=== PATIENT | female | born 1980 | race Caucasian/White ===

== ENCOUNTER 2017-08-13 12:19 | Emergency (ER) | payer BC ==
[~2017-08-13 12:19] MED LIST: ALBU8.5H6 IH; AZIT500T PO
[2017-08-13 12:27] VITALS: BP 114/65
[2017-08-13] MEDS ORDERED: PRED20TA PO (12:39)
[2017-08-13] MEDS ORDERED: AMOX1TAB61 PO (12:39)
--- NOTE | 2017-08-13 12:39 | PHYS DOC ---
Past Medical History Past Medical History: Other Additional Past Medical Histor: Morbid obesity Past Surgical History: Other Additional Past Surgical Histo: Gastric sleeve Alcohol Use: None Drug Use: None Adult General Chief Complaint Chief Complaint: SORE THROAT HPI HPI Patient is a 36 year old female presents the ED complaining of sore throat 3 days. Patient states month ago she was diagnosed with bronchitis. Associated symptoms include ear pain and subjective fever. Describes the pain as sharp. Rates the pain as 7 out of 10. Denies cough, nausea/vomiting, dizziness, weakness, headache, vision changes, chest pain or shortness of breath. Review of Systems Review of Systems Constitutional: Denies fever or chills [] Eyes: Denies change in visual acuity, redness, or eye pain [] HENT: Denies nasal congestion. Complains of sore throat and ear pain.[] Respiratory: Denies cough or shortness of breath [] Cardiovascular: No additional information not addressed in HPI [] GI: Denies abdominal pain, nausea, vomiting, bloody stools or diarrhea [] : Denies dysuria or hematuria [] Musculoskeletal: Denies back pain or joint pain [] Integument: Denies rash or skin lesions [] Neurologic: Denies headache, focal weakness or sensory changes [] Endocrine: Denies polyuria or polydipsia [] Allergies Allergies Allergies Coded Allergies Type Severity Reaction Last Updated Verified ciprofloxacin Allergy Severe Anaphylaxis 01/03/14 Yes adhesive Allergy Mild Rash 01/03/14 Yes doxycycline Allergy Anaphylaxis 01/03/14 Yes Physical Exam Physical Exam Constitutional: Well developed, well nourished, no acute distress, non-toxic appearance. [] HENT: Normocephalic, atraumatic, bilateral external ears normal, oropharynx moist, MILD PHARYNGEAL ERYTHEMA WITH EXUDATE, nose normal. [] Eyes: PERRLA, EOMI, conjunctiva normal, no discharge. [] Neck: Normal range of motion, no tenderness, supple, no stridor. [] Cardiovascular:Heart rate regular rhythm, no murmur [] Lungs & Thorax: Bilateral breath sounds clear to auscultation [] Abdomen: Bowel sounds normal, soft, no tenderness, no masses, no pulsatile masses. [] Skin: Warm, dry, no erythema, no rash. [] Back: No tenderness, no CVA tenderness. [] Extremities: No tenderness, no cyanosis, no clubbing, ROM intact, no edema. [] Neurologic: Alert and oriented X 3, normal motor function, normal sensory function, no focal deficits noted. [] Psychologic: Affect normal, judgement normal, mood normal. [] Current Patient Data Vital Signs Vital Signs Date Time Temp Pulse Resp B/P (MAP) Pulse Ox O2 Delivery O2 Flow Rate FiO2 08/13/17 12:27 98.3 86 18 98 Room Air 98.3 EKG EKG [] Radiology/Procedures Radiology/Procedures [] Course & Med Decision Making Course & Med Decision Making Pertinent Labs and Imaging studies reviewed. (See chart for details) [] Dragon Disclaimer Dragon Disclaimer This electronic medical record was generated, in whole or in part, using a voice recognition dictation system. Departure Departure Impression: Primary Impression: Pharyngitis Disposition: 01 HOME, SELF-CARE Condition: STABLE Referrals: KALEY LE MD (PCP) Patient Instructions: Viral and Bacterial Pharyngitis Scripts Prednisone (PREDNISONE) 20 Mg Tablet 2 TAB PO DAILY, #10 TAB Prov: CHRIS TILLEY 08/13/17 Amoxicillin/Potassium Clav (AUGMENTIN 875-125 TABLET) 1 Each Tablet 1 TAB PO BID, #20 TAB Prov: CHRIS TILLEY 08/13/17 CHRIS TILLEY Aug 13, 2017 12:39
[2017-08-14 07:43] LABS: NEGATIVE OBC STREP NEG; POSITIVE OBC STREP POS
== END 2017-08-13 12:51 | disposition home or self-care (01) ==
LOC: ER 12:19
DX: J02.9 Acute pharyngitis, unspecified (principal); H92.09 Otalgia, unspecified ear; R50.9 Fever, unspecified; Z88.1 Allergy status to other antibiotic agents; Z88.8 Allergy status to other drugs, medicaments and biological substances
CPT/HCPCS: 87070; 87880; 99283

== ENCOUNTER 2021-09-03 08:50 | Emergency (ER) | payer SELFPAY ==
[~2021-09-03] VITALS: Ht 157.5 cm; Wt 84.1 kg
[~2021-09-03 08:50] MED LIST changes: +AMOX1TAB61 PO; +PRED20TA PO
--- NOTE | 2021-09-03 10:32 | PHYS DOC ---
Past Medical History Past Medical History: Other Additional Past Medical Histor: Morbid obesity Past Surgical History: Other Additional Past Surgical Histo: Gastric sleeve Smoking Status: Current Every Day Smoker Alcohol Use: None Drug Use: None General Adult EDM: Chief Complaint: PELVIC PAIN HPI: HPI: Patient is a 40 year old who is here with pelvic pain, mostly right-sided. She has been experiencing the symptoms for several days. Over the weekend, she was seen at [facility], and at that time she had laboratory exams, urinalysis, CT abdomen pelvis and pelvic ultrasound. She told she was diagnosed with a right-sided ovarian cyst. She was prescribed a Medrol Dosepak and tramadol. She is unsure why she was prescribed the Medrol Dosepak. She rep orts that the tramadol is not helping her pain. She reports nausea without vomiting. She denies fevers or chills. She denies urinary symptoms. She does report some scant white vaginal discharge, which does not seem different from her physiologic discharge. LMP within the last month. She denies any history of STI, PID. She has not yet been able to follow-up with a applications support lead. She denies anorexia. She denies bowel habit changes. Review of Systems: Review of Systems: Constitutional: Denies fever or chills. HENT: Denies nasal congestion or sore throat. [] Respiratory: Denies cough or shortness of breath. [] Cardiovascular: Denies chest pain or edema. [] GI: Reports abdominal and pelvic pain. Denies vomiting, but does report nausea. Denies bowel habit changes. : Reports pelvic pain. Denies urinary symptoms. Reports scant white, physiologic discharge. Musculoskeletal: Denies back pain or joint pain. [] Integument: Denies rash. [] Neurologic: Denies headache, focal weakness or sensory changes. [] Endocrine: Denies polyuria or polydipsia. [] Lymphatic: Denies swollen glands. [] Psychiatric: Denies depression or anxiety. [] Heart Score: C/O Chest Pain: No Risk Factors: Risk Factors: DM, Current or recent (<one month) smoker, HTN, HLP, family history of CAD, obesity. Risk Scores: Score 0 - 3: 2.5% MACE over next 6 weeks - Discharge Home Score 4 - 6: 20.3% MACE over next 6 weeks - Admit for Clinical Observation Score 7 - 10: 72.7% MACE over next 6 weeks - Early Invasive Strategies Allergies: Allergies: Allergies Coded Allergies Type Severity Reaction Last Updated Verified ciprofloxacin Allergy Severe Anaphylaxis 01/03/14 Yes adhesive Allergy Mild Rash 01/03/14 Yes doxycycline Allergy Anaphylaxis 01/03/14 Yes Physical Exam: PE: Constitutional: Well developed, well nourished, no acute distress, non-toxic appearance. [] HENT: Normocephalic, atraumatic Eyes: Clear, anicteric. Neck: Normal range of motion, no tenderness, supple, no stridor. [] Cardiovascular:Heart rate regular rhythm, +2 radial and dorsalis pedis pulses bilaterally. Lungs & Thorax: Bilateral breath sounds clear to auscultation [] Abdomen: Abdomen is soft, nondistended, minimal tenderness to palpation in the suprapubic and right lower pelvic area. No guarding. No rebound. No CVA tenderness. No palpable masses organomegaly. No flank or abdominal ecchymoses. Normal bowel sounds are noted. Pelvic: No external vulvar lesions. There is very scant white discharge. The cervix is nonerythematous. No purulent discharge. No erythema. No CMT. Minimal right adnexal tenderness on bimanual exam. No adnexal fullness. Skin: Warm, dry, no erythema, no rash. [] Back: No tenderness, no CVA tenderness. [] Extremities: No tenderness, no cyanosis, no clubbing, ROM intact, no edema. [] Neurologic: Alert and oriented X 3, normal motor function, normal sensory function, no focal deficits noted. [] Psychologic: Affect normal, judgement normal, mood normal. [] EKG: EKG: [] Radiology/Procedures: Radiology/Procedures: IMAGING REPORT Signed PATIENT: KENDALL BENOITOUNT: [id number] : 1980 LOCATION: ER AGE: 40 SEX: F EXAM STATUS: REG ER ORD. PHYSICIAN: ROXI VERDUGO DO REASON: pelvic pain-RIGHT PROCEDURE: PELVIS W/TV EXAM: Pelvic sonogram. HISTORY: Pain. TECHNIQUE: Transabdominal and transvaginal sonographic imaging of the pelvis was performed. COMPARISON: None. FINDINGS: The uterus measures 9.0 x 6.5 x 4.2 cm. The endometrial stripe measures 10 mm in thickness. The left ovary is obscured due to bowel gas. No left adnexal mass or cyst is seen. The right ovary is normal in size. There is a 2.4 cm complicated right ovarian cyst, likely hemorrhagic in etiology. There is also a 1.4 cm right ovarian cyst containing a thin internal septation. There is no pelvic free fluid. IMPRESSION: 1. 2.4 cm suspected hemorrhagic right ovarian cyst and 1.4 cm right ovarian cyst with thin internal septation. Follow-up can be performed in 2-3 months to confirm resolution. 2. Obscured left ovary. Electronically signed by: Mariam Szymanski MD (09/03/2021 11:27 AM) [id number] DICTATED and SIGNED BY: MARIAM SZYMANSKI MD DATE: 09/03/21 [id number] 0 Course & Med Decision Making: Course & Med Decision Making Pertinent Labs and Imaging studies reviewed. (See chart for details) IV fluids, IV Zofran, IV morphine given. She is resting comfortably. She has a nonsurgical, benign abdominal exam. Ultrasound does show what is likely a hemorrhagic, septated cyst of her right ovary. No evidence of torsion. She is clinically well-appearing. No indication for further invasive exams, imaging or admission at this time. She does understand that vaginal swabs are pending. Her overall pelvic exam is benign. I did recommend that she follow-up with a applications support lead and primary care physician for further evaluation and treatment. I see no clinical reason for her to be on any oral steroid treatment, so I have informed her she should stop taking this. Strict return precautions are given. She is comfortable with the plan of care. Dragon Disclaimer: Dragmatheus Disclaimer: This electronic medical record was generated, in whole or in part, using a voice recognition dictation system. Departure Departure Impression: Primary Impression: Hemorrhagic cyst of right ovary Additional Impression: Pelvic pain Disposition: 01 HOME / SELF CARE / HOMELESS Condition: GOOD Referrals: KALEY LE MD (PCP) Patient Instructions: Ovarian Cyst Additional Instructions: Use the medication as directed/as needed. Stop taking the steroids, as these will only continue to cause increase stomach upset and nausea, and do not appear to provide any therapeutic treatment for your current condition.. Return for more severe pain, fever 100.4 or higher, uncontrolled vomiting with dehydration, or other concerns. Please follow-up with a applications support lead for further evaluation and treatment. Scripts Ondansetron Hcl (ZOFRAN) 4 Mg Tablet 4 MG PO PRN TID PRN for VOMITING, #15 EA nausea/vomiting Prov: ROXI VERDUGO DO 09/03/21 Hydrocodone Bit/Acetaminophen (HYDROCODONE-APAP 5-325 ) 1 Tab Tablet 1 TAB PO PRN Q6HRS PRN for PAIN, #15 TAB 0 Refills Prov: ROXI VERDUGO DO 09/03/21 ROXI VERDUGO DO Sep 03, 2021 10:32
[2021-09-03] MEDS ORDERED: MORPHINE SULFATE 4 MG/ML INJ. IVP ONE (11:00)
[2021-09-03] MEDS ORDERED: ONDANSETRON PF 4 MG/2 ML VIAL. IVP ONE (11:00)
[2021-09-03] MEDS ORDERED: IV NORMAL SALINE 1000ML BAG 1,000 ML IV ONE (11:00)
[2021-09-03 11:05] LABS: BILIRUBIN,URINE SMALL (NEG); CLARITY,URINE CLEAR; COLOR,URINE YELLOW; NITRITE,URINE NEGATIVE (NEG); PH,URINE 5.5 (<5.0-8.0); PROTEIN,URINE NEGATIVE (NEG-TRACE); UROBILINOGEN,URINE 0.2 mg/dL (0.2 mg/dL)
[2021-09-03 11:15] LABS: BASO # 0.1 x10^3/uL (0.0-0.2); BASO % 1 % (0-3); EOS # 0.2 x10^3/uL (0.0-0.7); EOS % 2 % (0-3); HEMOGLOBIN 11.7 g/dL (12.0-15.5); LYMPH # 3.6 x10^3/uL (1.0-4.8); LYMPH % 34 % (24-48); MEAN CORPUSCULAR HEMOGLOBIN 29 pg (25-35); MEAN CORPUSCULAR HGB CONC 33 g/dL (31-37); MEAN CORPUSCULAR VOLUME 89 fL (79-100); MONO # 1.1 x10^3/uL (0.0-1.1); MONO % 10 % (0-9); NEUT # 5.6 x10^3/uL (1.8-7.7); NEUT % 53 % (31-73); PLATELET COUNT 489 x10^3/uL (140-400); RED BLOOD COUNT 4.04 x10^6/uL (3.50-5.40); RED CELL DISTRIBUTION WIDTH 14.2 % (11.5-14.5); WHITE BLOOD COUNT 10.7 x10^3/uL (4.0-11.0)
[2021-09-03 11:24] LABS: CALCIUM 8.5 mg/dL (8.5-10.1); CREATININE 0.7 mg/dL (0.6-1.0); GFR 93.2
[2021-09-03 11:27] LABS: PREG TEST PT QUAL NEGATIVE (NEG)
[2021-09-03 11:29] LABS: ALBUMIN 3.4 g/dL (3.4-5.0); TOTAL BILIRUBIN 0.1 mg/dL (0.2-1.0); TOTAL PROTEIN 6.8 g/dL (6.4-8.2)
--- NOTE | 2021-09-03 11:29 | RAD ---
EXAM: Pelvic sonogram. HISTORY: Pain. TECHNIQUE: Transabdominal and transvaginal sonographic imaging of the pelvis was performed. COMPARISON: None. FINDINGS: The uterus measures 9.0 x 6.5 x 4.2 cm. The endometrial stripe measures 10 mm in thickness. The left ovary is obscured due to bowel gas. No left adnexal mass or cyst is seen. The right ovary i s normal in size. There is a 2.4 cm complicated right ovarian cyst, likely hemorrhagic in etiology. T here is also a 1.4 cm right ovarian cyst containing a thin internal septation. There is no pelvic charley e fluid. IMPRESSION: 1. 2.4 cm suspected hemorrhagic right ovarian cyst and 1.4 cm right ovarian cyst with thin internal s eptation. Follow-up can be performed in 2-3 months to confirm resolution. 2. Obscured left ovary. Electronically signed by: Mariam Ni MD (09/03/2021 11:27 AM) [id number]
[2021-09-03 11:32] LABS: BACTERIA,URINE 0 /HPF (0-FEW); RBC,URINE 0 /HPF (0-2); WBC,URINE OCC /HPF (0-4)
[2021-09-03] MEDS ORDERED: HYDR-2761 PO (13:00)
[2021-09-03] MEDS ORDERED: ONDA4TAB7 PO (13:00)
[2021-09-03 13:12] VITALS: BP 143/86
[2021-09-04 18:24] LABS: GC PROBE Negative (Negative)
== END 2021-09-03 13:20 | disposition home or self-care (01) ==
LOC: ER 08:50
DX: N83.201 Unspecified ovarian cyst, right side (principal); R10.2 Pelvic and perineal pain; F17.200 Nicotine dependence, unspecified, uncomplicated; E66.01 Morbid (severe) obesity due to excess calories; Z68.33 Body mass index [BMI] 33.0-33.9, adult; Z88.1 Allergy status to other antibiotic agents; Z88.8 Allergy status to other drugs, medicaments and biological substances
CPT/HCPCS: 76830; 76856; 80053; 81001; 81025; 83690; 84703; 85025; 87491; 87591; 96361; 96374; 96375; 99285; J2270; J2405; J7030; Q0111

== ENCOUNTER 2021-11-05 07:04 | Emergency (ER) | payer SELFPAY ==
[~2021-11-05] VITALS: Ht 157.5 cm; Wt 90.9 kg
[~2021-11-05 07:04] MED LIST changes: +HYDR-2761 PO; +ONDA4TAB7 PO
[2021-11-05] MEDS ORDERED: IV NORMAL SALINE 1000ML BAG 1,000 ML IV ONE (07:30)
[2021-11-05] MEDS ORDERED: ACETAMINOPHEN 500 MG TABLET PO ONE (07:45)
--- NOTE | 2021-11-05 07:50 | PHYS DOC ---
Past Medical History Past Medical History: Other Additional Past Medical Histor: Morbid obesity Past Surgical History: Cholecystectomy, Tubal ligation, Other Additional Past Surgical Histo: Gastric sleeve Smoking Status: Current Every Day Smoker Alcohol Use: None Drug Use: None General Adult EDM: Chief Complaint: GENERALIZED BODY ACHES HPI: HPI: Patient is a 41 year old female who presents with subjective fever, chills, diffuse body aches, and shortness of breath starting this morning. States that she was in her usual state of health last night when she went to bed. States that she has chronic low back pain, that is unchanged. Denies rashes, cough, congestion, sore throat. Denies abdominal pain, nausea, vomiting. Denies hematuria, urgency, frequency, dysuria. Denies sick contacts. Vaccinated with J&J. No booster. Denies IVDU. Review of Systems: Review of Systems: Constitutional: Reports fever and chills Eyes: Denies change in visual acuity. [] HENT: Denies nasal congestion or sore throat. [] Respiratory: Denies cough. Reports shortness of breath Cardiovascular: Denies chest pain or edema. [] GI: Denies abdominal pain, nausea, vomiting, bloody stools or diarrhea. [] : Denies dysuria. [] Musculoskeletal: Reports muscle aches/body aches diffusely Integument: Denies rash. [] Neurologic: Denies headache, focal weakness or sensory changes. [] Psychiatric: Denies depression or anxiety. [] Heart Score: C/O Chest Pain: No Current Medications: Current Medications Medications (Trade) Dose Ordered Sig/[facility] Start Time Stop Time Status Last Admin Dose Admin Sodium Chloride 1,000 ml @ 1,000 mls/hr 1X ONCE 11/05/21 07:30 11/05/21 08:29 Allergies: Allergies: Allergies Coded Allergies Type Severity Reaction Last Updated Verified ciprofloxacin Allergy Severe Anaphylaxis 11/05/21 Yes doxycycline Allergy Severe Anaphylaxis 11/05/21 Yes adhesive Allergy Mild Rash 11/05/21 Yes Physical Exam: PE: Constitutional: Anxious affect, mild tachypnea HENT: Normocephalic, atraumatic, bilateral external ears normal, oropharynx moist, no oral exudates, nose normal. [] Eyes: PERRLA, EOMI, conjunctiva normal, no discharge. [] Neck: Normal range of motion, no tenderness, supple, no stridor. [] Cardiovascular:Heart rate regular rhythm, no murmur [] Lungs & Thorax: Tachypnea. ? Right lower lobe crackle, cleared longterm through auscultatory exam. Abdomen: Soft, nontender Skin: Warm, dry, no erythema, no rash. [] Back: No tenderness, no CVA tenderness. [] Extremities: No tenderness, no cyanosis, no clubbing, ROM intact, no edema. [] Neurologic: Alert and oriented X 3, normal motor function, normal sensory function, no focal deficits noted. [] Psychologic: Anxious affect Current Patient Data: Vital Signs: Vital Signs Date Time Temp Pulse Resp B/P (MAP) Pulse Ox O2 Delivery O2 Flow Rate FiO2 11/05/21 07:17 99.1 107 18 147/60 (89) 98 Room Air 99.1 EKG: EKG: [] Sinus rhythm. Rate 100. Normal axis. Normal intervals. QTc 434. No ST elevation/depression. No pathologic Q waves or T wave inversions. Impression: Normal EKG Radiology/Procedures: Radiology/Procedures: [] Impression: [facility] [address] [place] [address] IMAGING REPORT Signed PATIENT: KENDALL BENOITOUNT: [id number] : 1980 LOCATION: ER AGE: 41 SEX: F EXAM STATUS: REG ER ORD. PHYSICIAN: LEONARDO HENSON MD REASON: sob, subjective fever PROCEDURE: CHEST AP ONLY EXAM: CHEST ONE VIEW. HISTORY: Shortness of breath, fever. COMPARISON: None. FINDINGS: A frontal view of the chest is obtained. There are no confluent infiltrates. A calcified granuloma in the left upper lobe measures 1.3 cm. There is no pneumothorax or pleural effusion. The heart is not enlarged. IMPRESSION: 1. No confluent infiltrates. Electronically signed by: Mahin Horan MD (11/05/2021 8:22 AM) [id number] DICTATED and SIGNED BY: LEONARDO HORAN MD DATE: 11/05/21 [id number] 0 Course & Med Decision Making: Course & Med Decision Making Pertinent Labs and Imaging studies reviewed. (See chart for details) Patient 41-year-old female who presents with subjective fever/chills, body aches, and shortness of breath. On arrival temp 99.1 F, HR 100, BP stable, satting 99% on room air. Question of crackles on auscultatory exam, but cleared longterm through examination. We will check CXR for evidence of pneumonia. Denies urinary symptoms, but states that she thinks her low back pain may be worse and that she has a history of UTIs. UA sent. Covid swab sent. Will give Tylenol, IVF, reassess after initial work-up. Denies hx IVDU, no murmur, low suspicion for endocarditis. 0750 COVID +, CXR clear. UA not c/w infection. Lactate mildly elevated 2.2, receiving 1L IVF now. Given source likely viral, do not feel repeat lactate, antibiotics, or admission is required. Vital signs remain stable. Following IVF will be safe for discharge with isolation precautions, conservative management, and return precautions outlined. [id number] Annie Disclaimer: Annie Disclaimer: This electronic medical record was generated, in whole or in part, using a voice recognition dictation system. Departure Departure Impression: Primary Impression: COVID-19 Disposition: HOME / SELF CARE / HOMELESS Condition: STABLE Referrals: NO PCP (PCP) Additional Instructions: Your Covid test returned positive. Fortunately, your chest x-ray did not show any signs of pneumonia at this time. For fever/body aches tylenol and ibuprofen are best used on a schedule. Please alternate between the two. -Tylenol 1000 mg every 6 hours (do not exceed 4000 mg in one day) -Ibuprofen 400 mg every 6 hours. Take with food. Do not take for more than 1 week. Isolation: YOU MUST self isolate for 10 days minimum (November 15) If at that time (Nov 15) you have three consecutive days with no fever and have improving symptoms you may end your isolation. If you continue to have fevers or persistent symptoms please continue isolate until you meet the above criteria. Please consider getting a home pulse oximeter (oxygen monitor). These are available over the counter or via [employer]. Please check your oxygen once daily, or if you have worsening symptoms. If it reads below 90% and does quickly improve please return to the emergency department. If you have severe shortness of breath, chest pain, or other new/concerning symptoms please return to the emergency department. LEONARDO HENSON MD Nov 05, 2021 07:50
[2021-11-05 07:55] LABS: BASO # 0.1 x10^3/uL (0.0-0.2); BASO % 1 % (0-3); EOS # 0.1 x10^3/uL (0.0-0.7); EOS % 1 % (0-3); HEMATOCRIT 33.8 % (36.0-47.0); LYMPH # 0.6 x10^3/uL (1.0-4.8); LYMPH % 6 % (24-48); MEAN CORPUSCULAR HEMOGLOBIN 28 pg (25-35); MEAN CORPUSCULAR HGB CONC 33 g/dL (31-37); MEAN CORPUSCULAR VOLUME 86 fL (79-100); MONO # 0.5 x10^3/uL (0.0-1.1); MONO % 5 % (0-9); NEUT # 9.4 x10^3/uL (1.8-7.7); NEUT % 88 % (31-73); PLATELET COUNT 426 x10^3/uL (140-400); RED BLOOD COUNT 3.92 x10^6/uL (3.50-5.40); RED CELL DISTRIBUTION WIDTH 16.6 % (11.5-14.5); WHITE BLOOD COUNT 10.8 x10^3/uL (4.0-11.0)
[2021-11-05 07:56] LABS: CALCIUM 8.5 mg/dL (8.5-10.1); CREATININE 0.8 mg/dL (0.6-1.0); GFR 79.4; POTASSIUM 3.6 mmol/L (3.5-5.1)
[2021-11-05 08:02] LABS: ALBUMIN 3.2 g/dL (3.4-5.0); ALBUMIN/GLOBULIN RATIO 0.9 (1.0-1.7); TOTAL BILIRUBIN 0.4 mg/dL (0.2-1.0); TOTAL PROTEIN 6.7 g/dL (6.4-8.2)
[2021-11-05 08:12] LABS: BILIRUBIN,URINE NEGATIVE (NEG); COLOR,URINE YELLOW; NITRITE,URINE NEGATIVE (NEG); PROTEIN,URINE NEGATIVE (NEG-TRACE); UROBILINOGEN,URINE 0.2 mg/dL (0.2 mg/dL)
--- NOTE | 2021-11-05 08:25 | RAD ---
EXAM: CHEST ONE VIEW. HISTORY: Shortness of breath, fever. COMPARISON: None. FINDINGS: A frontal view of the chest is obtained. There are no confluent infiltrates. A calcified granuloma in the left upper lobe measures 1.3 cm. The re is no pneumothorax or pleural effusion. The heart is not enlarged. IMPRESSION: 1. No confluent infiltrates. Electronically signed by: Mahin Horan MD (11/05/2021 8:22 AM) [id number]
[2021-11-05 08:34] LABS: CLARITY,URINE HAZY
[2021-11-05 08:35] LABS: AMORPHOUS SEDIMENT,UR PRESENT /HPF; BACTERIA,URINE MODERATE /HPF (0-FEW); RBC,URINE 0 /HPF (0-2)
--- NOTE | 2021-11-07 09:45 | EKG ---
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
== END 2021-11-05 09:29 | disposition home or self-care (01) ==
LOC: ER 07:04
DX: U07.1 COVID-19 (principal); F17.200 Nicotine dependence, unspecified, uncomplicated; E66.01 Morbid (severe) obesity due to excess calories; Z68.36 Body mass index [BMI] 36.0-36.9, adult; Z88.1 Allergy status to other antibiotic agents; Z88.8 Allergy status to other drugs, medicaments and biological substances
CPT/HCPCS: 36415; 71045; 80053; 81001; 81025; 83605; 85025; 87040; 87077; 87086; 87186; 87426; 93005; 96360; 96361; 99285; J7030; 99284